=== PATIENT | female | born 2000 | race Caucasian/White ===

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

== ENCOUNTER 2018-01-26 17:19 | Emergency (ER) | payer OTHER ==
[~2018-01-26] VITALS: Ht 165.1 cm; Wt 102.3 kg
[2018-01-26 17:58] VITALS: BP 114/74
== END 2018-01-26 19:11 | disposition home or self-care (01) ==
LOC: ED 17:19
DX: J02.9 Acute pharyngitis, unspecified (principal); J06.9 Acute upper respiratory infection, unspecified

== ENCOUNTER 2018-05-20 03:40 | Emergency (ER) | payer OTHER ==
[~2018-05-20] VITALS: Ht 165.1 cm; Wt 107.0 kg
[2018-05-20 03:47] VITALS: Ht 165.1 cm; Wt 107.0 kg
[2018-05-20 06:33] VITALS: BP 118/73
== END 2018-05-20 06:33 | disposition home or self-care (01) ==
LOC: ED 03:40
DX: R51 Headache (principal)
CPT/HCPCS: J1200; J1885; J2765; J7030

== ENCOUNTER 2018-09-15 20:41 | Emergency (ER) | payer OTHER ==
[~2018-09-15] VITALS: Ht 165.1 cm; Wt 108.0 kg
[2018-09-15 20:48] VITALS: Ht 165.1 cm; Wt 108.0 kg
[2018-09-15 22:28] LABS: BASOPHIL % 0.4 % (0-2); RED CELL DISTRIBUTION WIDTH 12.5 % (11.5-14.5)
[2018-09-15 22:38] LABS: PLATELET COUNT 127 x10^3mcL (130-400)
[2018-09-15 22:43] LABS: CALCIUM 8.9 mg/dL (8.5-10.1); CARBON DIOXIDE 28.2 mmol/L (21-32); CHLORIDE SERUM 103 mmol/L (98-107); CREATININE SERUM 0.7 mg/dL (0.6-1.0); GFR1 > 60 mL/min; GLUCOSE SERUM 83 mg/dL (74-106); POTASSIUM SERUM 4.1 mmol/L (3.5-5.1); SODIUM SERUM 137 mmol/L (136-145)
[2018-09-15 22:47] LABS: ALBUMIN 3.5 g/dL (3.4-5.0); ALKALINE PHOSPHATASE 69 U/L (46-116); ALT/SGPT 30 U/L (14-59); AST/SGOT 18 U/L (15-37); BILIRUBIN TOTAL 0.3 mg/dL (0.20-1.00); LIPASE 149 IU/L (73-393); TOTAL PROTEIN, SERUM 7.6 g/dL (6.4-8.2)
[2018-09-15 23:09] LABS: microscopic required? NO
[2018-09-15 23:16] LABS: urine erythrocyte NEGATIVE (NEGATIVE)
[2018-09-16 00:56] VITALS: BP 11/56
== END 2018-09-16 00:50 | disposition home or self-care (01) ==
LOC: ED 20:41
PROVIDERS: Emergency Medicine
DX: R11.10 Vomiting, unspecified (principal); R19.7 Diarrhea, unspecified; R10.9 Unspecified abdominal pain; R51 Headache
CPT/HCPCS: Q0162

== ENCOUNTER 2019-08-14 20:58 | Emergency (ER) | payer OTHER ==
[~2019-08-14] VITALS: Ht 165.1 cm; Wt 105.2 kg
[2019-08-14 21:23] VITALS: BP 131/78; Ht 165.1 cm; Wt 105.2 kg
== END 2019-08-14 22:11 | disposition home or self-care (01) ==
LOC: ED 20:58
DX: J45.909 Unspecified asthma, uncomplicated (principal)
CPT/HCPCS: J2920; J7613; J7620; J7644

== ENCOUNTER 2020-11-07 11:07 | Emergency (ER) | payer OTHER ==
[~2020-11-07] VITALS: Ht 165.1 cm; Wt 110.7 kg
[2020-11-07 11:19] VITALS: Ht 165.1 cm; Wt 110.7 kg
[2020-11-07 15:17] LABS: UA SPECIFIC GRAVITY 1.025 (1.005-1.035); microscopic required? YES; urine erythrocyte 3+ (NEGATIVE)
[2020-11-07 15:36] VITALS: BP 106/56
== END 2020-11-07 15:36 | disposition home or self-care (01) ==
LOC: ED 11:07
PROVIDERS: Emergency Medicine
DX: R31.0 Gross hematuria (principal); J45.909 Unspecified asthma, uncomplicated; F17.210 Nicotine dependence, cigarettes, uncomplicated